=== PATIENT | female | born 1935 | race Caucasian/White ===

== ENCOUNTER 2018-03-24 20:05 | Emergency (ER) | payer OTHER, MEDICAID ==
[~2018-03-24] VITALS: Ht 147.3 cm; Wt 64.4 kg
[~2018-03-24 20:05] MED LIST: ACT15 PO; AMLODIPINE BES2.5 MG PO; AMLODIPINE BESY10 M1 PO; ANT12.5 PO; APR50 PO; ASPIR 8181 MG PO; ASPIR-LOW81 M1 PO; ATENOLOL25 PO; CALCIUM500 MG PO; DONEPEZIL HYDRO10 M2 PO; GLIMEPIRIDE2 M1 PO; GLU500 PO; HYD25 PO; HYDRALAZINE50 M1 PO; LIPI20 PO; LISINOPRIL/HCTZ1 TAB PO; LISINOPRIL10 MG PO; LORAZEPAM0.5 MG PO; NOR10 PO; OSCD250 PO; OYSTER SHELL CA PO; PIOGLITAZONE HC1 TA1 PO; PROTONIX20 MG PO; SIMVASTATIN10 M1 PO; TRE400 PO; VIT D; ZES20 PO
[2018-03-24 20:21] VITALS: Ht 147.3 cm; Wt 64.4 kg
[2018-03-24 21:31] VITALS: BP 139/61
== END 2018-03-24 21:31 | disposition home or self-care (01) ==
LOC: ED 20:05
DX: S93.601A Unspecified sprain of right foot, initial encounter (principal); I10 Essential (primary) hypertension; E11.9 Type 2 diabetes mellitus without complications; M81.0 Age-related osteoporosis without current pathological fracture; Z86.73 Personal history of transient ischemic attack (TIA), and cerebral infarction without residual deficits; X50.1XXA Overexertion from prolonged static or awkward postures, initial encounter; Y93.01 Activity, walking, marching and hiking; Y92.89 Other specified places as the place of occurrence of the external cause; Y99.8 Other external cause status

== ENCOUNTER 2019-03-25 19:22 | Observation (INO) | payer OTHER, MEDICAID ==
[~2019-03-25] VITALS: Ht 152.4 cm; Wt 55.8 kg
--- NOTE | 2019-03-25 20:44 | NUR ---
PT BIB [facility], PLACED IN BED AND MONITOR APPLIED. PER MEDICS, FAMILY STATED PT WAS MORE CONFUSED THAN USUAL AT HOME AND THAT PT HAS HAD DIARRHEA X 3 DAYS. PT NOTED TO HAVE GENERLALIZED WEAKNESS, AAOX3 WITH CONFUSION TO EVENTS. WHEN ASKED, PT HAS NO COMPLAINTS AT THIS TIME. NO SIGNS OF DISTRESS NOTED. PT PLACED IN POSITION OF COMFORT.
--- NOTE | 2019-03-25 21:44 | NUR ---
PT RESTING IN BED WITH FAMILY WITH NO SIGNS OF DISTRESS AT THIS TIME.
[2019-03-25 22:06] LABS: BASOPHIL % 1.3 % (0-2); PLATELET COUNT 147 x10^3mcL (130-400)
[2019-03-25 22:15] LABS: RED CELL DISTRIBUTION WIDTH 15.6 % (11.5-14.5)
[2019-03-25 22:16] LABS: CALCIUM 8.4 mg/dL (8.5-10.1); CARBON DIOXIDE 30.2 mmol/L (21-32); CHLORIDE SERUM 112 mmol/L (98-107); CREATININE SERUM 0.7 mg/dL (0.6-1.0); GLUCOSE SERUM 90 mg/dL (74-106); POTASSIUM SERUM 3.9 mmol/L (3.5-5.1); SODIUM SERUM 148 mmol/L (136-145)
[2019-03-25 22:32] LABS: ALBUMIN 3.3 g/dL (3.4-5.0); ALKALINE PHOSPHATASE 75 U/L (46-116); ALT/SGPT 98 U/L (14-59); AST/SGOT 45 U/L (15-37); BILIRUBIN TOTAL 0.3 mg/dL (0.20-1.00); FREE T4 0.89 ng/dL (0.76-1.46); LIPASE 109 IU/L (73-393); TOTAL PROTEIN, SERUM 6.2 g/dL (6.4-8.2)
--- NOTE | 2019-03-25 22:40 | NUR ---
PT OFF OF FLOOR TO CT SCAN.
[2019-03-25 23:06] LABS: microscopic required? NO
--- NOTE | 2019-03-25 23:30 | NUR ---
PT TRANSPORTED TO [facility] BY NURSE
[2019-03-25 23:57] LABS: UA SPECIFIC GRAVITY >=1.030 (1.005-1.035); urine erythrocyte NEGATIVE (NEGATIVE)
--- NOTE | 2019-03-26 00:15 | NUR ---
RECEIVED PT FROM ED VIA NIRAV, CAME IN DUE TO INCREASED CONFUSION AND DIARRHEA. AAOX2, ABLE TO FOLLOW SIMPLE COMMANDS. W/ PERIODS OF CONFUSION. NO SOB NOTED, LUNG SOUNDS CTA. DENIES CHEST PAIN/PRESSURE. W/ LEFT CHEST PACEMAKER. DENIES ABDOMINAL DISCOMFORT. URINE INCONTINENT. W/ SMALL SCATTERED ECCHYMOSIS ON BUE. SIDE RAILS UPX2. CALL LIGHT ON REACH. DAUGHTER AT BEDSIDE. ENDORSED TO PRIMARY NURSE LELAND FOR CONTINUITY OF CARE
[2019-03-26 00:24] VITALS: BP 184/70
--- NOTE | 2019-03-26 00:41 | NUR ---
PT RECEIVED FROM RESOURCE NURSE A/O X2, ABLE TO FOLLOW SIMPLE COMMANDS, EPISODES OF CONFUSION. PT ADMITTED FOR CONFUSION AND HYPOGLYCEMIA. RBS-78. MED-SURG, DENIES ANY CP/PRESSURE. BREATHING IS EVEN AND UNLABORED, NO RESP DISTRESS NOTED. ABD SOFT AND ROUND, DENIES N/V. VOIDS FREELY, MAY HAVE EPISODES OF URINARY INCONTINENCE. GENERALIZED WEAKNESS, AMBULATORY WITH ASSIST. SMALL, SCATTERED ECCYMOSIS NOTED TO VENICE SHEEHAN. DAUGHTERES AT BEDSIDE. ORIENTED PT TO ROOM AND CALL LIGHT. BED ALARM ON. IVF ONOGING TO [facility], SITE FREE FROM REDNESS OR SWELLING. BED IN LOWEST SETTING, SIDE RAILS UP X2, CALL LIGHT WITHIN REACH. WILL CONT TO MONITOR.
[2019-03-26 00:48] VITALS: Ht 152.4 cm; Wt 55.8 kg
--- NOTE | 2019-03-26 03:26 | NUR ---
PT RESTING IN BED WITH EYES CLOSED, BUT IS EASILY AROUSABLE. BREATHING IS EVEN AND UNLABORED, NO RESP DISTRESS NOTED. NO S/S OF PAIN OBSERVED. IVF INFSUSING WELL, SITE WNL. NO ACUTE DISTRESS NOTED. CALL LIGHT WITHIN REACH. BED ALARM ON. WILL CONT TO MONITOR.
[2019-03-26 06:04] VITALS: BP 152/65
[2019-03-26 06:29] LABS: BASOPHIL % 0.3 % (0-2); PLATELET COUNT 145 x10^3mcL (130-400)
[2019-03-26 06:46] LABS: CALCIUM 8.4 mg/dL (8.5-10.1); CARBON DIOXIDE 29.8 mmol/L (21-32); CHLORIDE SERUM 114 mmol/L (98-107); CREATININE SERUM 0.7 mg/dL (0.6-1.0); GLUCOSE SERUM 111 mg/dL (74-106); MAGNESIUM 2.1 mg/dL (1.8-2.4); POTASSIUM SERUM 3.8 mmol/L (3.5-5.1); SODIUM SERUM 150 mmol/L (136-145)
[2019-03-26 06:55] LABS: RED CELL DISTRIBUTION WIDTH 15.4 % (11.5-14.5)
--- NOTE | 2019-03-26 07:30 | NUR ---
RECEIVED PT IN BED. ASSESSED AND DOCUMENTED. DENIES PAIN THIS TIME. STABLE. SAFTEY PRECAUTIONS ARE IN PLACE. WILL MONITOR.
--- NOTE | 2019-03-26 07:32 | NUR ---
PT SLEPT AT INTERVALS THROUGHOUT THE EVENING. BREATHING IS EVEN AND UNLABORED, NO RESP DISTRESS NOTED. PT DENIES HAVING ANY PAIN AT THIS TIME. PT ACCIDENTALLY PULLED OUT IV TO RAC, CATH INTACT, SITE WNL. NEW IV INSERTED TO RW, 22G, PT TOLERATED WELL. IVF INFUSING WELL TO RW, SITE FREE FROM REDNESS OR SWELLING. RBS-108. NO ACUTE CHANGES ENCOUNTERED DURING SHIFT. ALL NEEDS MET. BED ALARM ON. CALL LIGHT WITHIN REACH. CONTINUITY OF CARE ENDORSED TO AM NURSE. ALL QUESTIONS AND CONCERNS ADDRESSED.
--- NOTE | 2019-03-26 08:55 | NUR ---
CAME SPOKE WITH PT. SAW THE LAB RESULTS. HE SAID HE WILL DISCHARGE PT TOMORROW MORNING.
[2019-03-26 09:44] VITALS: BP 166/78
--- NOTE | 2019-03-26 14:00 | NUR ---
PT RESTING IN BED COMFORTABLY. DENIES ANY PAIN. STABLE.
[2019-03-26 16:48] VITALS: BP 130/46
--- NOTE | 2019-03-26 19:20 | NUR ---
PT RESTING IN BED COMFORTABLY. STABLE. GAVE REPORT TO HOME WORKER NURSE.
--- NOTE | 2019-03-26 20:10 | NUR ---
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 Very upset and wanted to take the patient home AMA. Stated that she will bring the patient to their doctor. Dr. White notified. Assisted via wheelchair to the car in no apparent distress.
[2019-03-27 08:11] LABS: C-PEPTIDE 2.4 ng/mL (1.1-4.4); INSULIN 5.7 uIU/mL (2.6-24.9)
== END 2019-03-26 20:25 | disposition left against medical advice (07) | DRG 638 ==
LOC: ED 19:22 → MU 23:21 → DU 23:21 → MU 23:21
PROVIDERS: Emergency Medicine; ADMIT Internal Medicine Pulmonary Disease
DX: E11.649 Type 2 diabetes mellitus with hypoglycemia without coma (principal); E87.1 Hypo-osmolality and hyponatremia; E86.0 Dehydration; I12.9 Hypertensive chronic kidney disease with stage 1 through stage 4 chronic kidney disease, or unspecified chronic kidney disease; N18.3 Chronic kidney disease, stage 3 (moderate); F03.90 Unspecified dementia, unspecified severity, without behavioral disturbance, psychotic disturbance, mood disturbance, and anxiety; M81.0 Age-related osteoporosis without current pathological fracture; Z86.73 Personal history of transient ischemic attack (TIA), and cerebral infarction without residual deficits; Z95.0 Presence of cardiac pacemaker; Z53.29 Procedure and treatment not carried out because of patient's decision for other reasons
CPT/HCPCS: 82962; 83880; 84439; 87046; 87046-59; G0378; G0480; J7040; J7042; J7070